=== PATIENT | male | born 1960 | race African-American/Black ===

== ENCOUNTER → 2017-06-27 | Outpatient (CLI) | payer OTHER ==
--- NOTE | 2017-06-28 17:44 | Pulmonary Function Test ---
Pulmonary Function Test Date of Procedure:: 06/27/17 INDICATION:: Dyspnea Referring Provider: Dr. Garcia Solar Tech: Ольга Soriano SENIOR GEOTECHNICAL ENGINEER - Report Spirometry: FVC 4.73 L 94% FEV1 3.29 L 81% FEV1/FVC % 69 predicted 80 FEF 25-75% 2.03 L 50% Impression: Mild obstructive ventilatory defect as demonstrated by a decreased FEV1/FVC % as well as a decrease in FEF 25-75%
== END ==
LOC: RT 12:07
DX: J44.9 Chronic obstructive pulmonary disease, unspecified (principal); C34.90 Malignant neoplasm of unspecified part of unspecified bronchus or lung
CPT/HCPCS: 94010